=== PATIENT | female | born 1930 | race Caucasian/White ===

== ENCOUNTER 2016-06-01 00:26 | Emergency (ER) | payer OTHER ==
[~2016-06-01] VITALS: Ht 162.5 cm; Wt 61.2 kg
[~2016-06-01 00:26] MED LIST: ANTIVERT/2525 M1 PO; AUGMENTIN 875 M1 TAB PO; CIPRO500 MG PO; CIPROFLOXACIN500 M4 PO; CLARITIN10 MG PO; EXELON4.6 MG/24 T; LISINOPRIL5 MG PO; MEDROL DOSEPAK4 MG PO; PROVENTIL0.09 MG/AC IH; RISPERDAL0.5 MG PO; XANAX0.5 MG PO
[2016-06-01] MEDS ORDERED: EXELON4.6 MG/24 TD (00:45)
[2016-06-01] MEDS ORDERED: LISINOPRIL2.5 MG PO (00:45)
[2016-06-01] MEDS ORDERED: XANAX0.5 MG PO (00:46)
[2016-06-01] MEDS ORDERED: Meclizine25 MG PO (00:46)
[2016-06-01] MEDS ORDERED: AMBIEN10 M1 JT (00:47)
[2016-06-01] MEDS ORDERED: [UNRECOGNIZED DRUG - OTHER] T (00:48)
== END 2016-06-01 03:10 | disposition other institution (70) ==
LOC: ED 00:26
DX: S00.83XA Contusion of other part of head, initial encounter (principal); Z88.2 Allergy status to sulfonamides; Z88.1 Allergy status to other antibiotic agents; Z79.899 Other long term (current) drug therapy; W18.39XA Other fall on same level, initial encounter; Y93.9 Activity, unspecified; Y92.9 Unspecified place or not applicable; Y99.9 Unspecified external cause status

== ENCOUNTER 2016-10-25 18:49 | Inpatient (IN) | payer OTHER ==
[~2016-10-25] VITALS: Ht 162.5 cm; Wt 53.1 kg
--- NOTE | ~2016-10-25 | PR ---
[place], [place] PROGRESS NOTE NAME: CHICO SERRATO UNIT #: [id number] ROOM: 411 DOCTOR: NICOLLE ROMEO MD BIRTHDATE: [birth year] DOS: 10/27/2016 SUBJECTIVE: The patient is about the same, does not have any new complaints. OBJECTIVE: LUNGS: Clear. HEART: Regular. ABDOMEN: Soft. EXTREMITIES: Without any edema. ASSESSMENT AND PLAN: 1. Alzheimer's dementia, late onset with encephalopathy. 2. Urinary tract infection has been resolved. 3. Dehydration, which is corrected. The plan is to discharge her back to the senior care this morning. Discussed with the patient's son-in-law. NICOLLE ROMEO MD CM:PNTRANS [phone] NICOLLE ROMEO MD 10/27/16 2309 interface
--- NOTE | ~2016-10-25 | DS ---
[place], [place] DISCHARGE SUMMARY NAME: CHICO SERRATO UNIT #: [id number] ROOM: 411 DOCTOR: NICOLLE ROMEO MD BIRTHDATE: [birth year] DOS: HOSPITAL COURSE: This patient is 85 years old, was brought into the Emergency Room with complaints of episodes of nausea, abdominal pain, chest discomfort, and multiple episodes of emesis. When she arrived to the Emergency Room, she was found to be prerenal and she was admitted and placed on IV fluids, IV Zofran possibility of UTI was noted. Urinalysis was sent for culture urine. The patient was placed on antibiotics. The patient is remaining stable without any new problems. She does get quite confused at times and gets agitated and combative. This morning, UTI has been ruled out. She has already pulled out the IV fluids. The plan is therefore to discharge her back to the custodial. Because of the complaint of chest pain, rule out RI protocol was ordered, all enzymes were negative. White cell count was normal at 8.3. Urine culture preliminary shows no bacterial growth. ASSESSMENT AND PLAN: 1. Prerenal azotemia. 2. Nausea, vomiting, possibly viral gastroenteritis. Urinary tract infection was ruled out. 3. Alzheimer dementia, late onset. 4. 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 5. Benign hypertension. DISCHARGE MEDICATIONS: Will be Exelon 13.3 daily, Seroquel 50 at bedtime, Colace 100 at bedtime, lisinopril 2.5 daily, mirtazapine 15 at bedtime, Lasix 20 daily p.r.n. for leg swelling, Colace was also 100 mg at bedtime p.r.n. for constipation. NICOLLE ROMEO MD CM:DISCHARG [phone] NICOLLE ROMEO MD 10/27/16 0854 interface
--- NOTE | ~2016-10-25 | WRIGHTHP ---
[place], [place] PATIENT HISTORY AND PHYSICAL EXAM [id number] UNIT #: [id number] ROOM: 411 DOCTOR: NICOLLE ROMEO MD BIRTHDATE: [birth year] DOS: 10/26/2016 HISTORY OF PRESENT ILLNESS: This patient is 85 years old. The patient had multiple emesis at the snf yesterday and also complains of minimal chest discomfort and was brought to the Emergency Room. She was evaluated and was found to be dehydrated and possibly with a UTI, was admitted. This morning, the patient is resting comfortably, does not know why she is here, but pleasant, in no distress and not agitated. Denies having any chest pains, palpitations, or shortness of breath. PAST MEDICAL HISTORY: 1. Significant for last hospitalization in 2016 with encephalopathy from UTI. 2. Alzheimer dementia, late onset. 3. Adult failure to thrive. 4. Benign hypertension. 5. Frailty with falls. MEDICATIONS: Medications that she is on currently are: Home meds are Colace 100 mg daily p.r.n. for constipation, Lasix 20 daily, lisinopril 2.5 daily, mirtazapine 15 mg at bedtime, Seroquel 50 mg at bedtime, and Exelon 13.3 mg patch daily. SOCIAL HISTORY: Nonsmoker, does not use any alcohol. Her children are grown and lives in town. She lives at [facility]. PHYSICAL EXAMINATION: GENERAL: She is awake and alert, not oriented to time, place or person this morning. She did not recognize me. VITAL SIGNS: Blood pressure is 126/64, pulse of 76, respirations 20, temperature 98.5. LUNGS: Diminished breath sounds. No wheezes, rales or rhonchi heard. HEART: Regular. ABDOMEN: Obese, soft, nontender. EXTREMITIES: Without any edema. LABORATORY DATA: WBC count is 8.3, hemoglobin 11.1, hematocrit 33.7. Comprehensive glucose 124, BUN 32, creatinine 1.0. Electrolytes were within normal limits. ASSESSMENT AND PLAN: 1. The patient who presents with nausea, emesis, possibly from a urinary tract infection versus viral gastroenteritis. The patient definitely has evidence of prerenal azotemia. IV fluids were ordered along with IV Zofran. 2. Possible urinary tract infection with encephalopathy. She is more forgetful than her baseline. This could be from underlying urinary tract infection. Urine culture has been sent. IV Rocephin started. 3. Benign hypertension, controlled. The patient should go back to the snf once we have the identification of the culture. [place], [place] PATIENT HISTORY AND PHYSICAL EXAM NAME: CHICO SERRATO UNIT #: [id number] ROOM: 411 DOCTOR: NICOLLE ROMEO MD BIRTHDATE: [birth year] NICOLLE ROMEO MD CM:HISPHYS:PATIENT HISTORY AND PHYSICAL EXAMINATION [phone] NICOLLE ROMEO MD 10/26/16 0755 interface
[2016-10-25 18:49] VITALS: BP 132/70
[~2016-10-25 18:49] MED LIST changes: +AMBIEN10 M1 JT; +EXELON4.6 MG/24 TD; +LISINOPRIL2.5 MG PO; +Meclizine25 MG PO; +[UNRECOGNIZED DRUG - OTHER] T
[2016-10-25 19:00] VITALS: BP 136/72
[2016-10-25 19:29] LABS: BASO # 0.1 10*3/uL (0.0-0.1); BASO % 1.4 % (0.0-1.0); EOS % 0.4 % (1.0-4.0); HEMATOCRIT 33.7 % (37.0-47.0); HEMOGLOBIN 11.1 g/dl (12.0-16.0); LYMPH # 1.3 10*3/uL (1.3-4.4); LYMPH % 15.9 % (27.0-41.0); MEAN CELL VOLUME 92.3 fl (81.0-99.0); MEAN CORPUSCULAR HGB 30.4 pg (27.0-31.0); MEAN CORPUSCULAR HGB CONC 32.9 g/dl (33.0-37.0); MEAN PLATELET VOLUME 9.4 fl (9.6-12.3); MONO # 0.4 10*3/uL (0.1-1.0); MONO % 4.8 % (3.0-9.0); NEUT # 6.4 10*3/uL (2.3-7.9); NEUT % 77.3 % (47.0-73.0); PLATELET COUNT AUTOMATED 275 10*3/uL (130-400); RED BLOOD COUNT 3.65 10*6/uL (4.10-5.10); RED CELL DISTRI WIDTH 13.2 % (0-14.5); WHITE BLOOD COUNT 8.3 10*3/uL (4.8-10.8)
[2016-10-25 19:44] LABS: ALBUMIN 4.2 gm/dl (3.1-4.5); ALKALINE PHOSPHATASE 77 U/L (45-117); BILIRUBIN, TOTAL 0.4 mg/dl (0.2-1.0); BUN 32 mg/dl (7-24); CARBON DIOXIDE 28 mmol/L (21-32); CHLORIDE 105 mmol/L (98-107); EST GLOM FILT AFRICAN AMERICAN > 60 ml/min; GLUCOSE 124 mg/dL (65-99); POTASSIUM 4.6 mmol/L (3.5-5.1); SGOT/AST 13 IU/L (3-35); SGPT/ALT 12 U/L (12-78); SODIUM 139 mmol/L (136-145); TOTAL PROTEIN 7.6 gm/dL (6.4-8.2)
[2016-10-25 19:45] VITALS: BP 118/64
[2016-10-25 20:00] LABS: BILIRUBIN NEGATIVE (NEGATIVE); BLOOD NEGATIVE (NEGATIVE); CLARITY CLEAR (CLEAR); COLOR YELLOW (YELLOW); GLUCOSE NEGATIVE (NEGATIVE); KETONE 1+ (NEGATIVE); LEUKO ESTERASE NEGATIVE (NEGATIVE); NITRITE NEGATIVE (NEGATIVE); PH 5.5 (5.0-9.0); PROTEIN NEGATIVE (NEGATIVE); SPECIFIC GRAVITY 1.025 (1.005-1.030)
[2016-10-25 20:12] LABS: BACTERIA TRACE; MUCOUS 1+
[2016-10-25 20:13] LABS: EPITHELIAL CELLS 0-2
[2016-10-25 20:14] LABS: URINE REFLEX COMMENT YES (NO)
[2016-10-25 20:30] VITALS: BP 124/62
[2016-10-25 21:32] VITALS: BP 120/65
[2016-10-25] MEDS ORDERED: EXEL13.31 TD (21:48)
[2016-10-25] MEDS ORDERED: LASIX20 MG PO (21:49)
[2016-10-25] MEDS ORDERED: QUETIAPINE FUMA50 M1 PO (21:49)
[2016-10-25] MEDS ORDERED: DOK100 MG PO (21:50)
[2016-10-25] MEDS ORDERED: MIRTAZAPINE15 M1 PO (21:51)
[2016-10-25] MEDS ORDERED: LISINOPRIL5 MG PO (21:51)
[2016-10-25 22:30] VITALS: BP 142/64
[2016-10-26] VITALS: BP 130/63
[2016-10-26 04:00] VITALS: BP 126/64
[2016-10-26 08:00] VITALS: BP 115/50
[2016-10-26 12:00] VITALS: BP 117/90
[2016-10-26 16:00] VITALS: BP 112/50
[2016-10-26 20:00] VITALS: BP 123/67
[2016-10-27] VITALS: BP 115/49
[2016-10-27] MEDS ORDERED: LASIX20 MG PO (07:41)
[2016-10-27 08:00] VITALS: BP 123/56
[2016-10-27 12:00] VITALS: BP 107/68
== END 2016-10-27 13:01 | disposition other institution (70) | DRG 391 ==
LOC: ED 18:49 → 4E 21:01 → EDHOLD 21:01 → 4E 22:09
PROVIDERS: Emergency Medicine
DX: A08.4 Viral intestinal infection, unspecified (principal); G93.40 Encephalopathy, unspecified; G30.1 Alzheimer's disease with late onset; R54 Age-related physical debility; F02.80 Dementia in other diseases classified elsewhere, unspecified severity, without behavioral disturbance, psychotic disturbance, mood disturbance, and anxiety; R62.7 Adult failure to thrive; I10 Essential (primary) hypertension; E86.0 Dehydration; K59.00 Constipation, unspecified; R07.9 Chest pain, unspecified; Z91.81 History of falling; Z87.440 Personal history of urinary (tract) infections; Z79.899 Other long term (current) drug therapy

== ENCOUNTER 2016-10-29 19:37 | Inpatient (IN) | payer OTHER ==
[~2016-10-29] VITALS: Ht 167.6 cm; Wt 54.7 kg
--- NOTE | ~2016-10-29 | O ---
[place], [place] OPERATIVE NOTE NAME: CHICO SERRATO UNIT #: [id number] ROOM: 525 DOCTOR: VIRGINIA SINMELISSA BIRTHDATE: [birth year] DOS: HISTORY OF PRESENT ILLNESS: The patient is an 85-year-old who has presented with chief complaint of recurrent nausea, vomiting, undergoing investigation. I have been asked for assessment of the patient in this regard. As well, the patient has had abnormal CT scan of the abdomen with segments of colitis. Case has been presented to the daughter; however, she does not want to proceed with colonoscopic evaluation; therefore, we organized panendoscopy today in search of nausea, vomiting and etiology of contribution from upper GI tract. PROCEDURE: Today's procedure part of investigation is panendoscopy plus biopsy. PREMEDICATION: Versed and Diprivan. SCOPE: Olympus forward-viewing gastroscope Q10 video. REPORT: After putting the patient in the left lateral position and after application of lubricant to the scope, the scope was introduced. Thereafter, under direct visualization, I advanced through the length of esophagus without difficulty. Esophagus cervicothoracic distally carefully examined. Gastric pouch was entered. Gastritis was seen. Mild small hiatal hernia about 2-3 cm was noticed. Duodenal bulb, second and third part within normal limits. Antral biopsy was obtained. The patient was extubated, tolerated the procedure well. IMPRESSION: Small hiatal hernia, gastritis. DISCUSSION AND PLAN: This patient's LFTs are normal. She is status post cholecystectomy, hysterectomy, hip arthroplasty, cataract extraction bilateral, total hips. Medication list has been reviewed. Her records have been reviewed. There is no acute contribution from upper GI tract to her nausea, vomiting except for small hiatal hernia. There is no evidence of bowel obstruction. Therefore, we are going to be continuing with supportive management, soft diet and clinical reassessment. Possibility of viral gastroenteritis has been kept in mind as far as colon is concerned. Power of prosecuting attorney did not authorize investigation of colon. On the other hand, the patient with suspected urinary tract infection, Enterococcus faecalis and sepsis in that regard could have been some contributor. Thank you very much indeed. [place], [place] OPERATIVE NOTE NAME: CHICO SERRATO UNIT #: [id number] ROOM: 525 DOCTOR: VIRGINIA SIN,MELISSA BIRTHDATE: [birth year] MELISSA COLEMAN MD CM:OPRECORD:OPERATIVE NOTE 1400 09 MELISSA COLEMAN MD 10/30/16 2016 interface
--- NOTE | ~2016-10-29 | DS ---
[place], [place] DISCHARGE SUMMARY NAME: CHICO SERRATO UNIT #: [id number] ROOM: 525 DOCTOR: NICOLLE ROMEO MD BIRTHDATE: [birth year] DOS: 10/31/2016 DIAGNOSES: 1. Gastroenteritis, viral. 2. Acute gastritis on endoscopy, on proton pump inhibitors. 3. Urinary tract infection with 50,000 colonies of Enterococcus faecalis. 4. Colitis with possibility of underlying malignancy with thickening of the transverse colon segment. 5. Alzheimer dementia with failure to thrive. 6. Hypertension. HOSPITAL COURSE: This patient is very well known to us, comes in with complaints of nausea and emesis. The patient was just discharged after an episode of viral gastritis. At that time, the urine culture was reported as negative. The patient was discharged back to the skilled nursing. She did not have any emesis after she got to the hospital. She went back to the skilled nursing; next day, she had 3 emesis at the skilled nursing. The family wanted her sent back out. Again, she was evaluated in the ER and labs were all within normal limits. Urine culture incidentally did come back showing 50,000 colonies of Enterococcus faecalis. A CT of the abdomen shows minimal colitis and thickening of the transverse colon. The patient had a consultation with Dr. Redmond ordered. Endoscopy with colonoscopy was scheduled, but the patient's daughter did not want a colonoscopy; endoscopy was performed. It showed some minimal esophagitis and hiatal hernia. The patient has again had no nausea or emesis after admission to the hospital; the last time she had these symptoms was when she was in the skilled nursing. The patient is stable today and will be discharged back to the skilled nursing. The patient's code status is comfort care. Please keep her comfortable at the skilled nursing. DISCHARGE MEDICATIONS: Cipro 500 mg b.i.d. for 5 days, Flagyl 500 mg 3 times a day for 5 days, Exelon 13.3 mg daily, lisinopril 2.5 daily, Remeron 15 at bedtime, Seroquel 50 at bedtime, Vistaril 25 at bedtime, Lasix 20 daily p.r.n. for leg swelling, Colace 100 mg daily for constipation, meclizine 25 q. 8 p.r.n. for dizziness, Zofran 8 mg q. 8 p.r.n. for nausea, Prilosec 20 mg daily, Reglan 5 mg p.o. twice daily for 5 days. [place], [place] DISCHARGE SUMMARY NAME: CHICO SERRATO UNIT #: [id number] ROOM: 525 DOCTOR: NICOLLE ROMEO MD BIRTHDATE: [birth year] NICOLLE ROMEO MD CM:DISCHARG [phone] NICOLLE ROMEO MD 10/31/16 0813 interface
--- NOTE | ~2016-10-29 | PR ---
[place], [place] PROGRESS NOTE NAME: CHICO SERRATO UNIT #: [id number] ROOM: 525 DOCTOR: NICOLLE ROMEO MD BIRTHDATE: [birth year] DOS: 10/31/2016 SUBJECTIVE: The patient has no complaints. After being brought to the Emergency Room, she has not had any emesis at all. OBJECTIVE: VITAL SIGNS: Graphic trend shows a pressure of 115/70, pulse 69, respirations 18, temperature 99.2. LUNGS: Clear. HEART: Regular. ABDOMEN: Soft, scaphoid. EXTREMITIES: Without any edema, nontender. ASSESSMENT AND PLAN: 1. Nausea, emesis of unknown etiology, possibly from recent UTI. Enterococcus faecalis was noted. The patient is on appropriate antibiotics. 2. Colitis noticed on the CT scan. Discussed with the patient's daughter. She did not want a colonoscopy. It is always a possibility that it could be a malignancy. The thickening of the transverse colon was noted. The patient's daughter is aware of the CT findings and the possibility that she may have underlying CA. 3. Enterococcus faecalis, 50,000 colonies, on Cipro. The patient is stable and can go back to the halfway today. NICOLLE ROMEO MD CM:PNTRANS 0 44 NICOLLE ROMEO MD 10/31/161944 interface
--- NOTE | ~2016-10-29 | CON ---
[place], [place] REPORT OF CONSULTATION NAME: CHICO SERRATO UNIT #: [id number] ROOM: 525 DOCTOR: VIRGINIA SIN,MELISSA BIRTHDATE: [birth year] DOS: 10/30/2016 GASTROENDOSCOPIC CONSULTATION HISTORY OF PRESENT ILLNESS: An 85-year-old patient who has presented with chief complaint of sepsis, this is under treatment and the patient has had a CT scan of the abdomen done. A segment of the colon was with colitis. The patient as well has nausea, vomiting, persistent in correction. PAST MEDICAL HISTORY: Associated with hypertension, Alzheimer dementia. The patient has had a history of falling episodes. SOCIAL HISTORY: Nonsmoker. Nonalcohol consumer. FAMILY HISTORY: Noncontributory. MEDICATIONS: List has been reviewed. ALLERGIES: SULFA. REVIEW OF SYSTEMS: HEENT: Denies double vision, blurred vision. RESPIRATORY: Denies shortness of breath. CARDIOVASCULAR: Denies chest pain. DIGESTIVE SYSTEM: Good appetite, nausea, vomiting. PHYSICAL EXAMINATION: VITAL SIGNS: Stable. HEENT: Head normocephalic, nontraumatic. Mouth and buccal mucosa benign. NECK: Supple, no thyromegaly, no cervical lymphadenopathy. CHEST: Symmetric anatomy, equal expansion. No wheeze. No rhonchi. HEART: Normal sinus rhythm. No gallop, no murmur. ABDOMEN: Soft. No hepato-organomegaly. Bowel sounds present. No pulsatile mass. EXTREMITIES: No cyanosis, no pedal edema. NEUROLOGIC: Alert and slow orientation. LABORATORY DATA: Reviewed. Records reviewed. Case discussed with the daughter. Her lab results, electrolytes balanced, GFR greater than 60, white blood cell was 6, H and H of [address] scan of the abdomen and pelvis, wall thickening in the ascending and transverse colon, extensive diverticulosis of the colon. Comprehensive metabolic panel, amylase, lipase within normal limits. Blood cultures, no growth on October 27. Troponin has been normal. Urine culture shows greater than 50 Enterococcus faecalis. Lactic acid has been 0.8. IMPRESSION: 1. Recurrent nausea, vomiting. 2. Hypertension. 3. Alzheimer dementia. [place], [place] REPORT OF CONSULTATION NAME: CHICO SERRATO UNIT #: [id number] ROOM: 525 DOCTOR: VIRGINIA SIN,MELISSA BIRTHDATE: [birth year] PLAN AND DISCUSSION: We are going to organize an endoscopy of upper tract. I have discussed with the power of erisa attorney, daughter. She does not want to have a colonoscopy performed at this stage. Therefore, we are going want to only proceed with panendoscopic assessment in search of upper GI causes of nausea, vomiting. MELISSA COLEMAN MD CM:CONSTR:REPORT OF CONSULTATION 1323 10/31/16 0456 interface
--- NOTE | ~2016-10-29 | WRIGHTHP ---
[place], [place] PATIENT HISTORY AND PHYSICAL EXAM [id number] UNIT #: [id number] ROOM: 525 DOCTOR: NICOLLE ROMEO MD BIRTHDATE: [birth year] DOS: 10/30/2016 HISTORY OF PRESENT ILLNESS: This patient is 85 years old, very well known to us, I just discharged her from the hospital. She was admitted with prerenal azotemia. At that time, the urine culture was called as negative, so she went back to the group home. Yesterday morning, I saw her at the group home. She looked poorly with mostly in bed, did not want to eat anything. By late afternoon, she was having some nausea and had a couple of emesis. After about 3 emesis, the family requested the patient be sent to the Emergency Room. She arrived to the Emergency Room. She had a CT of the abdomen and blood work. CT showed some thickening of colonic segments and possible colitis. Labs were all within normal limits except for a hemoglobin of 9.5, which is chronic. She was not found to be dehydrated any longer. Lactic acid was normal. Urine culture now incidentally is coming back to showing Enterococcus faecalis. She was admitted and this morning after admission, she has not had any emesis at all. She denies having any chest pains, palpitations. PAST MEDICAL HISTORY: Significant for: 1. Again, recent hospitalization for prerenal azotemia and a UTI. 2. Alzheimer dementia, failure to thrive with frailty and falls. 3. Benign hypertension. PHYSICAL EXAMINATION: GENERAL: She is awake and alert, but not oriented to time, place. Did recognize me this morning. VITAL SIGNS: Graphic trend shows that she is afebrile. Pressure is 136/46, pulse is 62, respirations 18, temperature 98.2. LUNGS: Diminished breath sounds. No wheezes, rales or rhonchi heard. HEART: Regular. ABDOMEN: Obese, soft. EXTREMITIES: Without any edema. ASSESSMENT AND PLAN: 1. Nausea, emesis of unknown etiology. Again, CT shows colitis. The patient has been placed on IV antibiotics. Flagyl was given in the Emergency Room and will continue with here. I did inform Dr. Redmond. He probably will do a colonoscopy this morning because of thickening of the transverse colon that may indicate underlying malignancy. 2. Urinary tract infection with Enterococcus faecalis. Cipro has been started. 3. Dementia, Alzheimer's late onset. Stable without any new cognitive problems. [place], [place] PATIENT HISTORY AND PHYSICAL EXAM NAME: CHICO SERRATO UNIT #: [id number] ROOM: [facility] DOCTOR: NICOLLE ROMEO MD BIRTHDATE: [birth year] NICOLLE ROMEO MD CM:HISPHYS:PATIENT HISTORY AND PHYSICAL EXAMINATION 0730 1015 NICOLLE ROMEO MD 10/30/16 1015 interface
[~2016-10-29 19:37] MED LIST changes: +DOK100 MG PO; +EXEL13.31 TD; +LASIX20 MG PO; +MIRTAZAPINE15 M1 PO; +QUETIAPINE FUMA50 M1 PO
[2016-10-29 19:47] VITALS: BP 128/50
[2016-10-29] MEDS ORDERED: REGLAN5 MG PO (20:43)
[2016-10-29] MEDS ORDERED: ZOFRAN8 M1 PO (20:43)
[2016-10-29 20:44] LABS: BASO # 0.1 10*3/uL (0.0-0.1); BASO % 1.1 % (0.0-1.0); EOS % 0.5 % (1.0-4.0); HEMATOCRIT 30.9 % (37.0-47.0); HEMOGLOBIN 10.4 g/dl (12.0-16.0); LYMPH # 1.1 10*3/uL (1.3-4.4); LYMPH % 17.1 % (27.0-41.0); MEAN CELL VOLUME 92.2 fl (81.0-99.0); MEAN CORPUSCULAR HGB CONC 33.7 g/dl (33.0-37.0); MEAN PLATELET VOLUME 9.9 fl (9.6-12.3); MONO # 0.3 10*3/uL (0.1-1.0); MONO % 5.1 % (3.0-9.0); NEUT # 4.9 10*3/uL (2.3-7.9); NEUT % 75.9 % (47.0-73.0); PLATELET COUNT AUTOMATED 266 10*3/uL (130-400); RED BLOOD COUNT 3.35 10*6/uL (4.10-5.10); RED CELL DISTRI WIDTH 13.1 % (0-14.5); WHITE BLOOD COUNT 6.5 10*3/uL (4.8-10.8)
[2016-10-29] MEDS ORDERED: OMEPRAZOLE20 M2 PO (20:44)
[2016-10-29] MEDS ORDERED: VISTARIL25 M2 PO (20:45)
[2016-10-29] MEDS ORDERED: MECLIZINE HCL25 M2 PO (20:47)
[2016-10-29 20:59] VITALS: BP 130/54
[2016-10-29 21:01] LABS: ALBUMIN 3.7 gm/dl (3.1-4.5); ALKALINE PHOSPHATASE 64 U/L (45-117); BILIRUBIN, TOTAL 0.4 mg/dl (0.2-1.0); BUN 24 mg/dl (7-24); CARBON DIOXIDE 24 mmol/L (21-32); CHLORIDE 109 mmol/L (98-107); CKMB 0.8 ng/ml (0.5-3.6); CPK 48 U/L (26-192); EST GLOM FILT AFRICAN AMERICAN > 60 ml/min; GLUCOSE 107 mg/dL (65-99); LDH 155 U/L (84-246); MAGNESIUM 2.2 mg/dL (1.5-2.1); POTASSIUM 4.3 mmol/L (3.5-5.1); SGOT/AST 11 IU/L (3-35); SGPT/ALT 11 U/L (12-78); SODIUM 142 mmol/L (136-145); TOTAL PROTEIN 6.6 gm/dL (6.4-8.2); TROPONIN I < 0.015 ng/ml (<0.045)
[2016-10-30] VITALS (11 sets, daily range): BP systolic 93–136; BP diastolic 33–62
[2016-10-30 06:10] LABS: BASO # 0.1 10*3/uL (0.0-0.1); BASO % 1.3 % (0.0-1.0); EOS # 0.1 10*3/uL (0.0-0.4); EOS % 1.8 % (1.0-4.0); HEMATOCRIT 28.8 % (37.0-47.0); HEMOGLOBIN 9.5 g/dl (12.0-16.0); LYMPH # 1.9 10*3/uL (1.3-4.4); LYMPH % 30.1 % (27.0-41.0); MEAN CELL VOLUME 92.9 fl (81.0-99.0); MEAN CORPUSCULAR HGB 30.6 pg (27.0-31.0); MEAN PLATELET VOLUME 10.2 fl (9.6-12.3); MONO # 0.5 10*3/uL (0.1-1.0); MONO % 8.1 % (3.0-9.0); NEUT # 3.6 10*3/uL (2.3-7.9); NEUT % 58.4 % (47.0-73.0); PLATELET COUNT AUTOMATED 258 10*3/uL (130-400); RED CELL DISTRI WIDTH 13.2 % (0-14.5); WHITE BLOOD COUNT 6.2 10*3/uL (4.8-10.8)
[2016-10-30 06:48] LABS: BUN 18 mg/dl (7-24); CARBON DIOXIDE 26 mmol/L (21-32); CHLORIDE 110 mmol/L (98-107); EST GLOM FILT AFRICAN AMERICAN > 60 ml/min; GLUCOSE 80 mg/dL (65-99); POTASSIUM 3.8 mmol/L (3.5-5.1); SODIUM 142 mmol/L (136-145)
[2016-10-31] VITALS: BP 115/70
[2016-10-31] MEDS ORDERED: CIPROFLOXACIN500 M4 PO (06:44)
[2016-10-31] MEDS ORDERED: FLAGYL500 MG PO (06:44)
[2016-10-31 08:00] VITALS: BP 130/67
== END 2016-10-31 10:45 | disposition other institution (70) | DRG 392 ==
LOC: ED 19:37 → EDHOLD 10-30 00:17 → 5E 10-30 00:17
PROVIDERS: Internal Medicine; Physician Assistant
PROC: 0DB68ZX Excision of Stomach, Via Natural or Artificial Opening Endoscopic, Diagnostic (ICD-10-PCS; principal; 2016-10-30)
DX: A08.4 Viral intestinal infection, unspecified (principal); N39.0 Urinary tract infection, site not specified; G30.1 Alzheimer's disease with late onset; F02.80 Dementia in other diseases classified elsewhere, unspecified severity, without behavioral disturbance, psychotic disturbance, mood disturbance, and anxiety; I10 Essential (primary) hypertension; K29.00 Acute gastritis without bleeding; R62.7 Adult failure to thrive; K44.9 Diaphragmatic hernia without obstruction or gangrene; K20.9 Esophagitis, unspecified; B95.2 Enterococcus as the cause of diseases classified elsewhere; Z66 Do not resuscitate; Z96.649 Presence of unspecified artificial hip joint; Z90.49 Acquired absence of other specified parts of digestive tract; Z90.710 Acquired absence of both cervix and uterus; Z98.42 Cataract extraction status, left eye; Z88.2 Allergy status to sulfonamides; Z98.41 Cataract extraction status, right eye; Z80.9 Family history of malignant neoplasm, unspecified; Z91.81 History of falling

== ENCOUNTER 2017-01-02 10:32 | Emergency (ER) | payer OTHER ==
[~2017-01-02] VITALS: Wt 49.9 kg
[~2017-01-02 10:32] MED LIST changes: +FLAGYL500 MG PO; +MECLIZINE HCL25 M2 PO; +OMEPRAZOLE20 M2 PO; +REGLAN5 MG PO; +VISTARIL25 M2 PO; +ZOFRAN8 M1 PO
[2017-01-02 10:59] LABS: BASO # 0.1 10*3/uL (0.0-0.1); BASO % 1.1 % (0.0-1.0); EOS % 0.4 % (1.0-4.0); HEMATOCRIT 32.8 % (37.0-47.0); HEMOGLOBIN 10.7 g/dl (12.0-16.0); LYMPH # 1.4 10*3/uL (1.3-4.4); LYMPH % 16.3 % (27.0-41.0); MEAN CELL VOLUME 93.2 fl (81.0-99.0); MEAN CORPUSCULAR HGB 30.4 pg (27.0-31.0); MEAN CORPUSCULAR HGB CONC 32.6 g/dl (33.0-37.0); MEAN PLATELET VOLUME 9.6 fl (9.6-12.3); MONO # 0.5 10*3/uL (0.1-1.0); MONO % 5.9 % (3.0-9.0); NEUT # 6.3 10*3/uL (2.3-7.9); NEUT % 76.1 % (47.0-73.0); PLATELET COUNT AUTOMATED 279 10*3/uL (130-400); RED BLOOD COUNT 3.52 10*6/uL (4.10-5.10); RED CELL DISTRI WIDTH 13.1 % (0-14.5); WHITE BLOOD COUNT 8.3 10*3/uL (4.8-10.8)
[2017-01-02 11:16] LABS: ALBUMIN 3.7 gm/dl (3.1-4.5); ALKALINE PHOSPHATASE 65 U/L (45-117); BILIRUBIN, TOTAL 0.5 mg/dl (0.2-1.0); BUN 23 mg/dl (7-24); CARBON DIOXIDE 26 mmol/L (21-32); CHLORIDE 108 mmol/L (98-107); EST GLOM FILT AFRICAN AMERICAN > 60 ml/min; GLUCOSE 96 mg/dL (65-99); POTASSIUM 4.2 mmol/L (3.5-5.1); SGOT/AST 12 IU/L (3-35); SGPT/ALT 13 U/L (12-78); SODIUM 139 mmol/L (136-145); TOTAL PROTEIN 6.9 gm/dL (6.4-8.2)
[2017-01-02 11:17] LABS: PROTHROMBIN TIME 10.5 SECONDS (9.0-12.4)
[2017-01-02 11:37] LABS: MAGNESIUM 2.1 mg/dL (1.5-2.1)
[2017-01-02 11:38] LABS: C-REACTIVE PROTEIN < 0.29 MG/DL (0-0.3); TROPONIN I < 0.015 ng/ml (<0.045)
[2017-01-02 12:51] LABS: BILIRUBIN NEGATIVE (NEGATIVE); BLOOD NEGATIVE (NEGATIVE); CLARITY SL CLOUDY (CLEAR); COLOR YELLOW (YELLOW); GLUCOSE NEGATIVE (NEGATIVE); KETONE 1+ (NEGATIVE); LEUKO ESTERASE NEGATIVE (NEGATIVE); NITRITE NEGATIVE (NEGATIVE); PH 5.5 (5.0-9.0); PROTEIN NEGATIVE (NEGATIVE); SPECIFIC GRAVITY >= 1.030 (1.005-1.030); UROBILINOGEN 0.2 E.U./dl (0.2-1.0)
[2017-01-02 13:31] LABS: BACTERIA TRACE; EPITHELIAL CELLS 0-2; MUCOUS 1+; URINE REFLEX COMMENT NO (NO)
== END 2017-01-02 16:21 ==
LOC: ED 10:32
PROVIDERS: Emergency Medicine; Nurse Practitioner Family
DX: R11.2 Nausea with vomiting, unspecified (principal); Z79.899 Other long term (current) drug therapy; Z88.2 Allergy status to sulfonamides; Z88.1 Allergy status to other antibiotic agents

== ENCOUNTER 2017-01-09 11:19 | Inpatient (IN) | payer OTHER ==
[~2017-01-09] VITALS: Ht 167.6 cm; Wt 49.9 kg
--- NOTE | ~2017-01-09 | O ---
[place], [place] OPERATIVE NOTE NAME: CHICO SERRATO UNIT #: [id number] ROOM: 427 DOCTOR: MELISSA COLEMAN MD BIRTHDATE: [birth year] DOS: GASTROENTEROSCOPIC REPORT INDICATIONS: The patient is an 86-year-old who has presented with chief complaint of diarrhea, abdominal pain, cramp, anemia, undergoing investigation. PROCEDURE: Today's procedure part of investigation is colonoscopy. PREMEDICATION: Versed and Diprivan. SCOPE: Olympus forward-viewing colonoscope 10L video. REPORT: After putting the patient in the left lateral position and after application of lubricant to rectal pouch and digital examination, scope was introduced. Thereafter, under direct visualization, I advanced through the length of colon without difficulty. Difficulty only being severe sigmoid diverticulosis. Base of cecum explored, patient had no evidence of colitis identified. The patient extubated, tolerated procedure well. IMPRESSION: Severe diverticulosis of sigmoid colon, status post photographic series. PLAN AND DISCUSSION: We are going to resume soft to regular diet and supportive management, otherwise. Thank you very much indeed for your kind referral. Sincerely, MELISSA COLEMAN MD CM:OPRECORD:OPERATIVE NOTE [id number] NICOLLE COLEMAN MD 01/10/17 1337 interface
--- NOTE | ~2017-01-09 | PR ---
[place], [place] PROGRESS NOTE NAME: CHICO SERRATO UNIT #: [id number] ROOM: 422 DOCTOR: NICOLLE ROMEO MD BIRTHDATE: [birth year] DOS: 01/11/2017 SUBJECTIVE: The patient is doing fine without any complaints. Did have some confusion during the night. This morning, she is awake and alert and oriented, recognizes me. She has already ordered her breakfast. OBJECTIVE: VITAL SIGNS: Blood pressure is 134/53, pulse of 53, respirations 20, temperature 99.6. LUNGS: Clear. HEART: Regular. ABDOMEN: Soft. EXTREMITIES: Without any edema. LABORATORY DATA: Urine culture shows E. coli. ASSESSMENT AND PLAN: 1. The patient admitted with nausea, vomiting and diarrhea with colitis on the CT scan of the abdomen, but negative colonoscopy, mostly showed diverticulosis. 2. Urinary tract infection with Escherichia coli. The patient was started on antibiotics. IV will discontinue and make p.o. and discharge her back to the halfway. 3. Alzheimer's dementia with metabolic encephalopathy, possibly from a recent urinary tract infection. We will continue same medications at the halfway. NICOLLE ROMEO MD CM:PNTRANS [id number] NICOLLE ROMEO MD 01/12/17 0643 interface
--- NOTE | ~2017-01-09 | WRIGHTHP ---
[place], [place] PATIENT HISTORY AND PHYSICAL EXAM NAME: CHICO SERRATO [facility] #: [id number] UNIT #: [id number] ROOM: 427 DOCTOR: NICOLLE ROMEO MD BIRTHDATE: [birth year] DOS: 01/09/2017 HISTORY OF PRESENT ILLNESS: This patient is 86 years old. The patient comes in with complaints of nausea, vomiting and diarrhea. The patient has had multiple ER visits. The last one was in 01/02/2017 where she was evaluated and was sent back to the [facility]. This time, the patient's family wanted the patient readmitted for a possible colonoscopy. The patient does not have any complaints of chest pains or palpitations. She states that she feels fine, but she has dementia and does not remember previous day's events. PAST MEDICAL HISTORY: Significant for, 1. Alzheimer dementia, late onset with failure to thrive. 2. Benign hypertension. 3. History of colitis of both ascending and transverse colon in the past. 4. Multiple UTIs. 5. History of endoscopy showing gastritis. MEDICATIONS: She is on are hydroxyzine 25 at bedtime, lisinopril 2.5, mirtazapine 15 at bedtime, omeprazole 20 daily, quetiapine 50 at bedtime, rivastigmine 13 mg transdermal daily. SOCIAL HISTORY: Nonsmoker, does not use any alcohol. She is a resident of [facility]. PHYSICAL EXAMINATION: GENERAL: She is awake and alert, but oriented to person, but not to place or time. VITAL SIGNS: Graphic trend shows pressure 118/55, pulse of 71, respirations 20, temperature 98.0. LUNGS: Diminished breath sounds. HEART: Regular. ABDOMEN: Soft, scaphoid, nontender. EXTREMITIES: Without any edema. LABORATORY DATA: White cell count is normal at 8.2, hemoglobin 10.6, hematocrit 32.8. Lactic acid 1. Comprehensive within normal limits, no abnormalities noted. Urinalysis shows 3+ blood, positive nitrite, positive leukocyte esterase. Culture pending. CT of the abdomen and pelvis shows thickening of the ascending colon with fat stranding. ASSESSMENT AND PLAN: 1. The patient who has had chronic diarrhea with colitis. Dr. Redmond to take her for a colonoscopy this morning. 2. History of gastritis already on proton pump inhibitors, being continued. 3. Benign hypertension, controlled. Restart home meds. 4. Alzheimer dementia, late onset. Continue supportive symptomatic care. [place], [place] PATIENT HISTORY AND PHYSICAL EXAM NAME: CHICO SERRATO UNIT #: [id number] ROOM: [facility] DOCTOR: NICOLLE ROMEO MD BIRTHDATE: [birth year] NICOLLE ROMEO MD CM:HISPHYS:PATIENT HISTORY AND PHYSICAL EXAMINATION [phone] NICOLLE ROMEO MD 01/10/17 0812 interface
--- NOTE | ~2017-01-09 | DS ---
[place], [place] DISCHARGE SUMMARY NAME: CHICO SERRATO UNIT #: [id number] ROOM: 422 DOCTOR: NICOLLE ROMEO MD BIRTHDATE: [birth year] DOS: 01/11/2017 DIAGNOSES: 1. Urinary tract infection with Escherichia coli. 2. Metabolic encephalopathy from the urinary tract infection. 3. Alzheimer dementia, late onset. 4. Adult failure to thrive. 5. Benign hypertension. 6. Colitis of the ascending and transverse colon, but a colonoscopy showing no findings other than diverticulosis. 7. History of acute gastritis with endoscopy earlier this year. MEDICATIONS ON DISCHARGE: Will be Ceftin 250 twice daily for 5 days, Exelon 13.3 mg patch daily, Seroquel 50 mg at bedtime, Colace 100 mg daily, lisinopril 2.5 mg daily, mirtazapine 15 at bedtime, ondansetron 8 mg q.8 hours p.r.n., omeprazole 20 daily, Vistaril 25 at bedtime. HOSPITAL COURSE: This patient is 86 years old, was brought in with complaints of nausea, vomiting and diarrhea. Please see the H and P for details. She had a CT scan of the abdomen showed colitis of the ascending and transverse colon with thickening of the colonic wall. The patient underwent a colonoscopy after prep with Dr. Redmond. This showed diverticulosis. No other pathology was seen. The patient also had a urinalysis in reflex, which showed urine E. coli for which the patient was placed on Levaquin, but the E. coli is resistant to Levaquin, so we will discontinue it and place her on Ceftin. The patient is stable. She did have some periods of confusion, possibly from being in hospital and also, possibly from UTI. The patient is stable and can be discharged back to the custodial. NICOLLE ROMEO MD CM:DISCHARG [phone] NICOLLE ROMEO MD 01/11/1728 interface
[~2017-01-09 11:19] MED LIST changes: -MIRTAZAPINE15 M1 PO; +OMEPRAZOLE D/R20 MG PO; -OMEPRAZOLE20 M2 PO; +REMERON15 M2 PO; +ZESTRIL2.5 MG PO
[2017-01-09 11:20] VITALS: BP 117/50
[2017-01-09 12:46] LABS: BASO # 0.1 10*3/uL (0.0-0.1); BASO % 1.1 % (0.0-1.0); EOS # 0.1 10*3/uL (0.0-0.4); EOS % 1.2 % (1.0-4.0); HEMATOCRIT 32.8 % (37.0-47.0); HEMOGLOBIN 10.6 g/dl (12.0-16.0); LYMPH # 2.2 10*3/uL (1.3-4.4); LYMPH % 26.6 % (27.0-41.0); MEAN CORPUSCULAR HGB 30.4 pg (27.0-31.0); MEAN CORPUSCULAR HGB CONC 32.3 g/dl (33.0-37.0); MONO # 0.7 10*3/uL (0.1-1.0); MONO % 8.3 % (3.0-9.0); NEUT # 5.1 10*3/uL (2.3-7.9); NEUT % 62.6 % (47.0-73.0); PLATELET COUNT AUTOMATED 239 10*3/uL (130-400); RED BLOOD COUNT 3.49 10*6/uL (4.10-5.10); RED CELL DISTRI WIDTH 13.3 % (0-14.5); WHITE BLOOD COUNT 8.2 10*3/uL (4.8-10.8)
[2017-01-09 13:04] LABS: ALBUMIN 3.7 gm/dl (3.1-4.5); ALKALINE PHOSPHATASE 61 U/L (45-117); BILIRUBIN, TOTAL 0.5 mg/dl (0.2-1.0); BUN 15 mg/dl (7-24); CARBON DIOXIDE 27 mmol/L (21-32); CHLORIDE 106 mmol/L (98-107); EST GLOM FILT AFRICAN AMERICAN > 60 ml/min; GLUCOSE 83 mg/dL (65-99); SGOT/AST 8 IU/L (3-35); SGPT/ALT 10 U/L (12-78); SODIUM 141 mmol/L (136-145); TOTAL PROTEIN 6.6 gm/dL (6.4-8.2)
[2017-01-09 14:04] LABS: BILIRUBIN NEGATIVE (NEGATIVE); BLOOD 3+ (NEGATIVE); CLARITY SL CLOUDY (CLEAR); COLOR YELLOW (YELLOW); GLUCOSE NEGATIVE (NEGATIVE); KETONE NEGATIVE (NEGATIVE); LEUKO ESTERASE 2+ (NEGATIVE); NITRITE POSITIVE (NEGATIVE); PH 5.5 (5.0-9.0); PROTEIN TRACE (NEGATIVE); SPECIFIC GRAVITY >= 1.030 (1.005-1.030); UROBILINOGEN 0.2 E.U./dl (0.2-1.0)
[2017-01-09 14:11] LABS: BACTERIA 3+; RBC TNTC rbc/hpf (0-2); WBC TNTC wbc/hpf (0-5)
[2017-01-09 14:12] LABS: URINE REFLEX COMMENT YES (NO)
[2017-01-09 16:00] VITALS: BP 118/54
[2017-01-09 20:00] VITALS: BP 121/72; BP 125/55
[2017-01-09 20:30] VITALS: BP 121/72
[2017-01-10] VITALS (9 sets, daily range): BP systolic 101–134; BP diastolic 30–55
[2017-01-11] MEDS ORDERED: CEFUROXIME AXE250 MG PO (07:36)
[2017-01-11 08:00] VITALS: BP 126/57
== END 2017-01-11 09:10 | DRG 391 ==
LOC: ED 11:19 → 4E 13:37 → EDHOLD 13:37 → 4E 13:53
PROVIDERS: Nurse Practitioner Family
PROC: 0DJD8ZZ Inspection of Lower Intestinal Tract, Via Natural or Artificial Opening Endoscopic (ICD-10-PCS; principal; 2017-01-10)
DX: K57.30 Diverticulosis of large intestine without perforation or abscess without bleeding (principal); G93.41 Metabolic encephalopathy; N39.0 Urinary tract infection, site not specified; G30.1 Alzheimer's disease with late onset; F02.80 Dementia in other diseases classified elsewhere, unspecified severity, without behavioral disturbance, psychotic disturbance, mood disturbance, and anxiety; Z51.5 Encounter for palliative care; Z66 Do not resuscitate; B96.20 Unspecified Escherichia coli [E. coli] as the cause of diseases classified elsewhere; Z96.643 Presence of artificial hip joint, bilateral; R62.7 Adult failure to thrive; I10 Essential (primary) hypertension; K29.00 Acute gastritis without bleeding; Z88.2 Allergy status to sulfonamides; Z88.8 Allergy status to other drugs, medicaments and biological substances; Z79.899 Other long term (current) drug therapy; Z98.42 Cataract extraction status, left eye; K52.9 Noninfective gastroenteritis and colitis, unspecified

== ENCOUNTER 2017-01-31 19:17 | Emergency (ER) | payer OTHER ==
[~2017-01-31] VITALS: Ht 167.6 cm; Wt 47.6 kg
[~2017-01-31 19:17] MED LIST changes: +CEFUROXIME AXE250 MG PO
[2017-01-31 20:20] LABS: BASO # 0.1 10*3/uL (0.0-0.1); BASO % 1.3 % (0.0-1.0); EOS # 0.1 10*3/uL (0.0-0.4); EOS % 1.6 % (1.0-4.0); HEMOGLOBIN 11.6 g/dl (12.0-16.0); LYMPH # 2.1 10*3/uL (1.3-4.4); LYMPH % 37.7 % (27.0-41.0); MEAN CELL VOLUME 93.8 fl (81.0-99.0); MEAN CORPUSCULAR HGB 30.2 pg (27.0-31.0); MEAN CORPUSCULAR HGB CONC 32.2 g/dl (33.0-37.0); MEAN PLATELET VOLUME 9.4 fl (9.6-12.3); MONO # 0.4 10*3/uL (0.1-1.0); MONO % 7.1 % (3.0-9.0); NEUT # 2.9 10*3/uL (2.3-7.9); NEUT % 51.9 % (47.0-73.0); PLATELET COUNT AUTOMATED 306 10*3/uL (130-400); RED BLOOD COUNT 3.84 10*6/uL (4.10-5.10); RED CELL DISTRI WIDTH 13.1 % (0-14.5); WHITE BLOOD COUNT 5.5 10*3/uL (4.8-10.8)
[2017-01-31 20:37] LABS: BUN 20 mg/dl (7-24); CHLORIDE 101 mmol/L (98-107); CREATININE 1.04 mg/dL (0.55-1.02); POTASSIUM 4.3 mmol/L (3.5-5.1); SODIUM 137 mmol/L (136-145)
== END 2017-01-31 23:39 | disposition other institution (70) ==
LOC: ED 19:17
PROVIDERS: Physician Assistant
DX: M25.552 Pain in left hip (principal); Z88.2 Allergy status to sulfonamides; Z88.1 Allergy status to other antibiotic agents; Z79.899 Other long term (current) drug therapy; W18.39XA Other fall on same level, initial encounter; Y93.89 Activity, other specified; Y92.129 Unspecified place in nursing home as the place of occurrence of the external cause; Y99.8 Other external cause status

== ENCOUNTER 2017-02-03 15:20 | Emergency (ER) | payer OTHER ==
[~2017-02-03] VITALS: Wt 59.0 kg
[2017-02-03 16:50] LABS: BASO # 0.1 10*3/uL (0.0-0.1); BASO % 0.7 % (0.0-1.0); EOS # 0.1 10*3/uL (0.0-0.4); EOS % 0.7 % (1.0-4.0); HEMATOCRIT 36.7 % (37.0-47.0); HEMOGLOBIN 12.2 g/dl (12.0-16.0); LYMPH # 1.4 10*3/uL (1.3-4.4); LYMPH % 8.6 % (27.0-41.0); MEAN CELL VOLUME 94.3 fl (81.0-99.0); MEAN CORPUSCULAR HGB 31.4 pg (27.0-31.0); MEAN CORPUSCULAR HGB CONC 33.2 g/dl (33.0-37.0); MEAN PLATELET VOLUME 9.5 fl (9.6-12.3); MONO # 0.9 10*3/uL (0.1-1.0); MONO % 5.2 % (3.0-9.0); NEUT # 13.8 10*3/uL (2.3-7.9); NEUT % 84.4 % (47.0-73.0); PLATELET COUNT AUTOMATED 342 10*3/uL (130-400); RED BLOOD COUNT 3.89 10*6/uL (4.10-5.10); RED CELL DISTRI WIDTH 13.1 % (0-14.5); WHITE BLOOD COUNT 16.4 10*3/uL (4.8-10.8)
[2017-02-03 16:58] LABS: ACT PARTIAL THROMBO TIME 24.7 SECONDS (20.8-31.5)
[2017-02-03 17:06] LABS: ALBUMIN 4.1 gm/dl (3.1-4.5); ALKALINE PHOSPHATASE 84 U/L (45-117); BUN 16 mg/dl (7-24); CHLORIDE 105 mmol/L (98-107); CREATININE 0.94 mg/dL (0.55-1.02); MAGNESIUM 2.2 mg/dL (1.5-2.1); SGOT/AST 13 IU/L (3-35); SGPT/ALT 15 U/L (12-78); SODIUM 140 mmol/L (136-145); TOTAL PROTEIN 7.9 gm/dL (6.4-8.2)
[2017-02-03 17:07] LABS: TROPONIN I < 0.015 ng/ml (<0.045)
== END 2017-02-03 18:16 | disposition other institution (70) ==
LOC: ED 15:20
PROVIDERS: Emergency Medicine
DX: R55 Syncope and collapse (principal); D72.829 Elevated white blood cell count, unspecified; Z98.42 Cataract extraction status, left eye; Z96.643 Presence of artificial hip joint, bilateral; Z90.710 Acquired absence of both cervix and uterus; Z98.890 Other specified postprocedural states; Z88.2 Allergy status to sulfonamides; Z88.1 Allergy status to other antibiotic agents; Z88.8 Allergy status to other drugs, medicaments and biological substances; Z79.899 Other long term (current) drug therapy

== ENCOUNTER 2017-09-20 17:06 | Inpatient (IN) | payer OTHER, MEDICAID ==
[~2017-09-20] VITALS: Ht 165.1 cm; Wt 58.7 kg
--- NOTE | ~2017-09-20 | PR ---
[place], [place] PROGRESS NOTE NAME: CHICO SERRATO UNIT #: [id number] ROOM: 410 DOCTOR: NICOLLE ROMEO MD BIRTHDATE: [birth year] DOS: SUBJECTIVE: The patient is resting comfortably, pleasantly confused. OBJECTIVE: VITAL SIGNS: Blood pressure is 100/62, pulse of 68, respirations 16, temperature 98.8. LUNGS: Clear. HEART: Regular. ABDOMEN: Soft. EXTREMITIES: Without any edema. ASSESSMENT AND PLAN: 1. Urinary tract infection with gram-negative bacilli. I do not have any identification or sensitivities yet. 2. Acute kidney injury from infectious process, which has resolved with IV fluids. We will discontinue fluids. Continue antibiotics and the patient hopefully can be discharged back to the detention today. NICOLLE ROMEO MD CM:PNTRANS [phone] NICOLLE ROMEO MD 09/22/17 0800 interface
--- NOTE | ~2017-09-20 | WRIGHTHP ---
[place], [place] PATIENT HISTORY AND PHYSICAL EXAM NAME: CHICO SERRATO UNIT #: [id number] ROOM: 410 DOCTOR: NICOLLE ROMEO MD BIRTHDATE: [birth year] DOS: 09/20/2017 HISTORY OF PRESENT ILLNESS: The patient is 86-year-old. She is a resident of [facility], was found to be quite confused with a fever. The patient was therefore sent out to the Emergency Room. This morning, the patient is resting comfortably, does not have any complaints. looking forward for her breakfast. Denies having any abdominal pain or nausea. PAST MEDICAL HISTORY: Significant for: 1. Alzheimer's dementia, late onset. 2. Metabolic encephalopathy from history of UTI. 3. Adult failure to thrive. 4. Benign hypertension. 5. History of gastritis. MEDICATIONS: That the patient is currently on are: Tylenol 650 q. 4 hours p.r.n., cyproheptadine 4 mg twice a daily, Vistaril 50 at bedtime, metoclopramide 5 b.i.d., Remeron 15 at bedtime, omeprazole 20 daily, rivastigmine 13.3 mg patch daily. SOCIAL HISTORY: Nonsmoker, does not use any alcohol. She is a resident of [facility]. PHYSICAL EXAMINATION: GENERAL: She is awake and alert and oriented to place, but not to person or time. She did recognize me. VITAL SIGNS: Graphic trend shows blood pressure of 142/70, pulse of 76, respirations 14, afebrile this morning. LUNGS: Diminished breath sounds, clear. HEENT: Within normal limits. HEART: Regular. ABDOMEN: Obese, soft, nontender. EXTREMITIES: Without any edema. ASSESSMENT AND PLAN: 1. Metabolic encephalopathy with fever, possibly from urinary tract infection. The patient has been admitted. IV fluids have been ordered and urine cultures have been sent. IV antibiotics have been started. 2. Alzheimer's dementia with failure to thrive. Continue home medications. Hopefully, home as soon as we have the urine culture results. [place], [place] PATIENT HISTORY AND PHYSICAL EXAM NAME: CHICO SERRATO UNIT #: [id number] ROOM: 410 DOCTOR: NICOLLE ROMEO MD BIRTHDATE: [birth year] NICOLLE ROMEO MD CM:PHYS:PATIENT HISTORY AND PHYSICAL EXAMINATION 1 NICOLLE ROMEO MD 09/21/17 0852 interface
--- NOTE | ~2017-09-20 | DS ---
[place], [place] DISCHARGE SUMMARY NAME: CHICO SERRATO UNIT #: [id number] ROOM: 410 DOCTOR: NICOLLE ROMEO MD BIRTHDATE: [birth year] DOS: 09/22/2017 DIAGNOSES: 1. Urinary tract infection. 2. Metabolic encephalopathy. 3. Acute kidney injury, possibly from acute tubular necrosis from infectious process. 4. Alzheimer's dementia, late onset. 5. Benign hypertension. MEDICATIONS ON DISCHARGE: Will be the same as on admission. The only new prescription given was Ceftin 250 twice a day for 5 days. HOSPITAL COURSE: This patient is very well known to us. She is an 86-year-old. She lives at [facility]. She was found to be increasingly confused on the day of admission and also had a fall at home and hit her head. The patient was brought to the Emergency Room, was evaluated and was admitted with diagnosis of metabolic encephalopathy. After admission, she was given IV fluids for acute kidney injury and IV antibiotics. Urine culture was refluxed and it has come back growing gram-negative bacilli, did not have identification, no sensitivities yet. The patient is stable and improved. The acute kidney injury has corrected. The patient can be discharged home on p.o. antibiotics and we should be able to readjust medicines if the antibiotic sensitivity comes back and it is not the correct antibiotic. The patient is otherwise stable. NICOLLE ROMEO MD CM:DISCHARG [id number] NICOLLE ROMEO MD 09/22/17 0748 interface
[2017-09-20 17:09] VITALS: BP 136/66
[2017-09-20 18:49] LABS: BILIRUBIN NEGATIVE (NEGATIVE); BLOOD TRACE-INTACT (NEGATIVE); CLARITY SL CLOUDY (CLEAR); COLOR YELLOW (YELLOW); GLUCOSE NEGATIVE (NEGATIVE); KETONE NEGATIVE (NEGATIVE); LEUKO ESTERASE 1+ (NEGATIVE); NITRITE NEGATIVE (NEGATIVE); PH 6.5 (5.0-9.0); SPECIFIC GRAVITY 1.015 (1.005-1.030); UROBILINOGEN 0.2 E.U./dl (0.2-1.0)
[2017-09-20 18:54] LABS: BASO # 0.1 10*3/uL (0.0-0.1); BASO % 1.2 % (0.0-1.0); EOS # 0.2 10*3/uL (0.0-0.4); EOS % 2.6 % (1.0-4.0); HEMATOCRIT 35.2 % (37.0-47.0); HEMOGLOBIN 11.5 g/dl (12.0-16.0); LYMPH # 2.3 10*3/uL (1.3-4.4); LYMPH % 27.5 % (27.0-41.0); MEAN CELL VOLUME 90.7 fl (81.0-99.0); MEAN CORPUSCULAR HGB 29.6 pg (27.0-31.0); MEAN CORPUSCULAR HGB CONC 32.7 g/dl (33.0-37.0); MEAN PLATELET VOLUME 9.5 fl (9.6-12.3); MONO # 0.8 10*3/uL (0.1-1.0); MONO % 9.1 % (3.0-9.0); NEUT # 4.9 10*3/uL (2.3-7.9); NEUT % 59.2 % (47.0-73.0); PLATELET COUNT AUTOMATED 311 10*3/uL (130-400); RED BLOOD COUNT 3.88 10*6/uL (4.10-5.10); RED CELL DISTRI WIDTH 15.2 % (0-14.5); WHITE BLOOD COUNT 8.4 10*3/uL (4.8-10.8)
[2017-09-20 18:57] LABS: BACTERIA 1+
[2017-09-20 18:58] LABS: EPITHELIAL CELLS 51-100
[2017-09-20 18:59] LABS: WBC 51-100 wbc/hpf (0-5)
[2017-09-20 19:00] VITALS: BP 144/63
[2017-09-20 19:09] LABS: ALBUMIN 3.8 gm/dl (3.1-4.5); CREATININE 1.13 mg/dL (0.55-1.02); POTASSIUM 4.1 mmol/L (3.5-5.1); TOTAL PROTEIN 7.2 gm/dL (6.4-8.2)
[2017-09-20 19:36] VITALS: BP 130/55
[2017-09-20 21:34] VITALS: BP 135/60
[2017-09-20] MEDS ORDERED: TYLENOL325 M2 PO (23:54)
[2017-09-20] MEDS ORDERED: CYPROHEPTADINE H4 M1 PO (23:55)
[2017-09-20] MEDS ORDERED: REGLAN5 MG PO (23:55)
[2017-09-20] MEDS ORDERED: GLYCOLAX119 GM PO (23:59)
[2017-09-21] VITALS: BP 130/52
[2017-09-21 06:28] LABS: HEMATOCRIT 34.9 % (37.0-47.0); HEMOGLOBIN 11.4 g/dl (12.0-16.0); MEAN CELL VOLUME 91.4 fl (81.0-99.0); MEAN CORPUSCULAR HGB 29.8 pg (27.0-31.0); MEAN CORPUSCULAR HGB CONC 32.7 g/dl (33.0-37.0); MEAN PLATELET VOLUME 10.8 fl (9.6-12.3); PLATELET COUNT AUTOMATED 223 10*3/uL (130-400); RED BLOOD COUNT 3.82 10*6/uL (4.10-5.10); RED CELL DISTRI WIDTH 15.2 % (0-14.5)
[2017-09-21 06:38] LABS: BUN 20 mg/dl (7-24); CHLORIDE 114 mmol/L (98-107); CREATININE 0.81 mg/dL (0.55-1.02); POTASSIUM 4.6 mmol/L (3.5-5.1); SODIUM 143 mmol/L (136-145)
[2017-09-21 07:16] LABS: BURR CELLS FEW; PLATELET SUFFICIENCY NORMAL (NORMAL); TOTAL CELLS COUNTED 100 #CELLS
[2017-09-21 08:00] VITALS: BP 111/50
[2017-09-21 12:00] VITALS: BP 130/62
[2017-09-21 16:00] VITALS: BP 133/63
[2017-09-21 20:00] VITALS: BP 125/65
[2017-09-22] VITALS: BP 100/62; BP 97/83
[2017-09-22] MEDS ORDERED: CEFUROXIME AXE250 MG PO (07:36)
[2017-09-22 08:00] VITALS: BP 141/58
== END 2017-09-22 16:03 | DRG 682 ==
LOC: ED 17:06 → EDHOLD 20:38 → 4E 20:38
PROVIDERS: Emergency Medicine; Internal Medicine
DX: N17.0 Acute kidney failure with tubular necrosis (principal); G93.41 Metabolic encephalopathy; N39.0 Urinary tract infection, site not specified; G30.1 Alzheimer's disease with late onset; F02.80 Dementia in other diseases classified elsewhere, unspecified severity, without behavioral disturbance, psychotic disturbance, mood disturbance, and anxiety; R62.7 Adult failure to thrive; W19.XXXA Unspecified fall, initial encounter; Z96.643 Presence of artificial hip joint, bilateral; Z66 Do not resuscitate; Z51.5 Encounter for palliative care; B96.89 Other specified bacterial agents as the cause of diseases classified elsewhere; I10 Essential (primary) hypertension; Z79.899 Other long term (current) drug therapy; Z88.2 Allergy status to sulfonamides; Z88.8 Allergy status to other drugs, medicaments and biological substances; Y93.89 Activity, other specified; Y92.098 Other place in other non-institutional residence as the place of occurrence of the external cause; Y99.8 Other external cause status; Z87.19 Personal history of other diseases of the digestive system; Z87.01 Personal history of pneumonia (recurrent); Z90.710 Acquired absence of both cervix and uterus; Z98.42 Cataract extraction status, left eye; Z80.9 Family history of malignant neoplasm, unspecified

== ENCOUNTER → 2018-03-04 | Outpatient (CLI) | payer OTHER, MEDICAID ==
[~2018-03-04] MED LIST changes: +COLACE100 MG PO; +CYPROHEPTADINE H4 M1 PO; +DEBROX15 ML OT; +GLYCOLAX119 GM PO; +TYLENOL325 M2 PO
== END | disposition home or self-care (01) ==
LOC: ORTHO 02:16
DX: S42.294D Other nondisplaced fracture of upper end of right humerus, subsequent encounter for fracture with routine healing (principal); X58.XXXD Exposure to other specified factors, subsequent encounter

== ENCOUNTER 2018-06-08 13:13 | Inpatient (IN) | payer OTHER ==
[~2018-06-08] VITALS: Ht 163 cm; Wt 55.0 kg
--- NOTE | ~2018-06-08 | PR ---
[place], [place] PROGRESS NOTE [id number] UNIT #: [id number] ROOM: 421 DOCTOR: FRANCESCA SIN,FLORIDALMA Ellis BIRTHDATE: [birth year] DOS: 06/09/2018 SUBJECTIVE: The patient is feeling about the same. OBJECTIVE: VITAL SIGNS: Blood pressure 107/89, heart rate of 77 beats per minute, breathing 16 times per minute, temperature 99.8 degrees Fahrenheit. IMPRESSION: 1. The patient with Staphylococcus hominis positive blood cultures, running low grade fevers going up to 100.6 degrees Fahrenheit, being evaluated by Infectious Disease specialist, Dr. Cheryl Sheriff, who will decide about further workup and evaluation and treatment. 2. Late onset Alzheimer's type dementia, treated with rivastigmine. 3. Behavioral issues, treated and controlled with mirtazapine. 4. Generalized anxiety disorder, treated with hydroxyzine as needed. 5. Gastroesophageal reflux disease and esophagitis, treated with omeprazole. FLORIDALMA MA MD CM:PNTRANS [id number] FLORIDALMA MA MD 06/09/18 8577 interface
--- NOTE | ~2018-06-08 | CON ---
[place], [place] REPORT OF CONSULTATION NAME: CHICO SERRATO UNIT #: [id number] ROOM: 421 DOCTOR: CHERYL SHERIFF MD BIRTHDATE: [birth year] DOS: 06/09/2018 REASON FOR CONSULTATION: Staph hominis bacteremia. CHIEF COMPLAINT: None. HISTORY OF PRESENTING ILLNESS: This is an 87-year-old female who was presenting from alf facility because of abnormal blood cultures. I tried to ask multiple doctors as well as the staffing analyst, it is unclear why the patient's blood cultures were drawn at the alf; however, the patient herself is alert, awake, and denies having any fever or chills. No nausea, vomiting, diarrhea. No chest pain or shortness of breath. She denies having any diarrhea. Her blood cultures from 06/05/2018 only one bottle out of four bottles was positive for Staph hominis. No leukocytosis. Yesterday, she had a WBC count of 16.7, which was result without any antibiotics. On her vitals, she had one time temperature of 100.4. No subjective fever or chills. Her UA shows numerous bacteria. Urine culture shows heavy Gram-negative bacteria. The patient was recently admitted and discharged on 05/21/2018 when she was treated for ESBL E. coli and was getting imipenem, which she was supposed to get for 10 days, but her PICC line is still in place. Infectious Disease was not consulted at that time. PAST MEDICAL HISTORY: Significant for recurrent UTIs, hypertension, Alzheimer's, gastroparesis. MEDICATIONS: Reviewed. SOCIAL HISTORY: Nonsmoker, nonalcoholic. Resident of [facility]. PHYSICAL EXAMINATION: VITAL SIGNS: Mentioned in HPI, stable. GENERAL: The patient is alert and awake, not completely oriented. HEENT: Atraumatic, normocephalic. PERRLA, EOMI. RESPIRATORY: Air entry bilaterally equal. No wheeze or crackles. CARDIOVASCULAR: S1, S2 normal. ABDOMEN: Soft, nontender, nondistended. Bowel sounds present. EXTREMITIES: No pedal edema. NEUROLOGIC: Grossly intact. PICC line in place. LABORATORY DATA AND IMAGING: Reviewed, mentioned in HPI. ASSESSMENT: 1. Staphylococcus hominis bacteria, 1/4 bottles positive from 06/05/2018, likely contamination. 2. Recent urinary tract infection with extended-spectrum beta-lactamase Escherichia coli, completed 10 days course of antibiotics with imipenem. 3. Failure to thrive. 4. Gastroparesis. [place], [place] REPORT OF CONSULTATION NAME: CHICO SERRATO UNIT #: [id number] ROOM: [facility] DOCTOR: CHERYL SHERIFF MD BIRTHDATE: [birth year] PLAN: 1. At this time, no need for treatment of the Staph hominis bacteremia is likely a contamination. At this time, there is no need for PICC line. I would advise to discontinue the PICC line. 2. The patient has recently been treated for her UTI. Would not treat her again unless she is symptomatic and get a clean catch urine sample before sending for urine cultures. Thank you for your consult. Please call for any questions. Cheryl Sheriff MD CM:CONSTR:REPORT OF CONSULTATION 1826 07/03/18 1644 interface
--- NOTE | ~2018-06-08 | EKG ---
[place], [place] ELECTROCARDIOGRAM REPORT NAME: CHICO SERRATO UNIT #: [id number] ROOM: 421 DOCTOR: EPIPHANY DRAFT REPORT BIRTHDATE: [birth year] [facility] Test Date: 2018-06-08 Test Time: 13:34:12 Pat Name: CHICO SERRATO Department: Room: 421 Gender: F Stripe Matcher: : 1930 Requested By: AUGUSTIN MADSEN Order Number: [id number] Reading MD: Lambert Newberry MD Measurements Intervals [place] Rate: 76 P: 69 OK: 145 QRS: 56 QRSD: 82 T: 55 QT: 372 QTc: 419 Interpretive Statements Sinus rhythm Abnormal R-wave progression, early transition Compared to ECG 01/23/2018 17:40:53 No significant changes Electronically Signed On 06-10-2018 4:52:50 PST by Lambert Newberry MD CM:EKGRPT:ELECTROCARDIOGRAM REPORT [id number] AUGUSTIN MADSEN EPIPHANY DRAFT REPORT AUGUSTIN MADSEN
--- NOTE | ~2018-06-08 | WRIGHTHP ---
[place], [place] PATIENT HISTORY AND PHYSICAL EXAM NAME: CHICO SERRATO [facility] #: [id number] UNIT #: [id number] ROOM: 421 DOCTOR: FLORIDALMA MA MD BIRTHDATE: [birth year] DOS: 06/08/2018 HISTORY OF PRESENT ILLNESS: The patient is an 87-year-old female with a past medical history of: 1. Staph hominis positive blood cultures recently. 2. Late onset Alzheimer's type dementia. 3. Benign essential hypertension. 4. Advanced adult failure to thrive. 5. History of gastroparesis. The patient was at the senior living when she was reported by the lab to have blood cultures positive for Staphylococcus hominis and she was sent over to the Emergency Department and we contacted Infectious Disease specialist, Dr. Sheriff for opinion and the patient was recommended for admission and further evaluation before treatment. After admission, the patient is pleasantly confused. No chest pain. No shortness of breath. No GI or urinary symptoms. REVIEW OF SYSTEMS: LUNGS: No increasing shortness of breath. GASTROINTESTINAL: No nausea, vomiting, diarrhea, constipation. CARDIOVASCULAR: No chest pains or palpitations. FAMILY HISTORY: Noncontributory. HOME MEDICATIONS: The patient takes rivastigmine, omeprazole, Colace, mirtazapine, hydroxyzine, metoclopramide, cyproheptadine. ALLERGIES: SULFA mainly PHYSICAL EXAMINATION: GENERAL: The patient is pleasantly confused, generalized weakness. HEENT AND NECK: Extraocular movements are intact. Sclerae are anicteric. Oral mucosa is moist and clean. No obvious facial weakness. Neck is supple without any lymphadenopathy. No thyromegaly. No JVD. No carotid arterial bruits. LUNGS: Clear to auscultation. No wheezing. No rhonchi. CARDIOVASCULAR SYSTEM: Heart rate is regular in rate and rhythm. S1 and S2 normally audible. No significant murmur or any other abnormal cardiac sounds. ABDOMEN: Soft, nontender. No obvious organomegaly. Bowel sounds are present. No obvious herniation. EXTREMITIES: Without significant cyanosis or edema. Warm to touch. CENTRAL NERVOUS SYSTEM: Alert and oriented x 3. Cranial nerves II-XII are intact. Speech is normal. The patient is able to move all extremities. Normal muscle strength. Deep tendon reflexes are equal on both sides. Plantars were downgoing. IMPRESSION AND PLAN: 1. The patient with Staphylococcus hominis positive blood culture, to be evaluated by Infectious Disease specialist, then recommended treatment. 2. Late onset Alzheimer's type dementia. The patient is continued on rivastigmine and we will take bedsore and fall precautions, use air mattress and [place], [place] PATIENT HISTORY AND PHYSICAL EXAM NAME: CHICO SERRATO UNIT #: [id number] ROOM: [facility] DOCTOR: FRANCESCA SIN,FLORIDALMA Ellis BIRTHDATE: [birth year] every 2 hour turning. 3. Gastroesophageal reflux disease and esophagitis, treated with omeprazole, asymptomatic. 4. Late onset Alzheimer's type dementia with behavioral issues, treated with mirtazapine. 5. The patient to work with Physical Therapy for advanced directives. FLORIDALMA MA MD CM:HISPHYS:PATIENT HISTORY AND PHYSICAL EXAMINATION 170 24 FLORIDALMA MA MD 06/08/181925 interface
--- NOTE | ~2018-06-08 | DS ---
[place], [place] DISCHARGE SUMMARY NAME: CHICO SERRATO UNIT #: [id number] ROOM: 421 DOCTOR: FLORIDALMA MA MD BIRTHDATE: [birth year] DOS: 06/10/2018 DISCHARGE DIAGNOSES: 1. Staphylococcus hominis hominis positive blood cultures 1/4 bottles, considered contaminant by Infectious Disease specialist. 2. Urinary tract infection with Proteus mirabilis. 3. Late onset Alzheimer's type dementia. 4. Gastroesophageal reflux disease and esophagitis. 5. Adult failure to thrive. 6. Benign essential hypertension. 7. Gastroparesis history. HOSPITAL COURSE: The patient with advanced adult failure to thrive was sent over for positive blood cultures for Staphylococcus hominis hominis. The patient was admitted, recultured and there were no other signs of infection, so this was considered a contaminant by Infectious Disease specialist, Dr. Sheriff, and patient to be discharged back to residential. Urinary tract infection with Proteus mirabilis, recently treated. Mild leukocytosis, improved. Benign essential hypertension with controlled blood pressures. Advance adult failure to thrive. We took bedsore precautions, fall precautions and the patient worked with physical therapy. Late onset Alzheimer's type dementia remains stable. DISCHARGE MANAGEMENT: Rivastigmine 13.3 mg daily, Colace 100 mg daily, omeprazole 20 mg a day, metoclopramide 5 mg b.i.d., mirtazapine 15 mg at bedtime, hydroxyzine 50 mg at bedtime, cyproheptadine 4 mg b.i.d. for a month. [place], [place] DISCHARGE SUMMARY NAME: CHICO SERRATO UNIT #: [id number] ROOM: 421 DOCTOR: FLORIDALMA MA MD BIRTHDATE: [birth year] FLORIDALMA MA MD CM:DISCHARG 1703 [id number] FLORIDALMA MA MD 06/11/18 0013 interface
[2018-06-08 13:15] VITALS: BP 124/53
[2018-06-08 13:41] LABS: BILIRUBIN NEGATIVE (NEGATIVE); BLOOD TRACE-INTACT (NEGATIVE); CLARITY CLOUDY (CLEAR); COLOR YELLOW (YELLOW); GLUCOSE NEGATIVE (NEGATIVE); KETONE NEGATIVE (NEGATIVE); LEUKO ESTERASE 3+ (NEGATIVE); NITRITE NEGATIVE (NEGATIVE); UROBILINOGEN 0.2 E.U./dl (0.2-1.0)
[2018-06-08 13:53] LABS: BACTERIA 4+; WBC TNTC wbc/hpf (0-5)
--- NOTE | 2018-06-08 14:16 | NUR ---
Notifed my lab, pt has lactic acid of 2.4, Hal GEIGER and Elissa APPIAH notifed.
--- NOTE | 2018-06-08 14:18 | NUR ---
PER Tova CHANDLER AFTER SPEAKING WITH ID "NO ANTIBIOTICS ARE TO BE GIVEN TO PT BEFORE ID SEE HER".
[2018-06-08 14:22] LABS: BASO # 0.2 10*3/uL (0.0-0.1); EOS # 0.1 10*3/uL (0.0-0.4); EOS % 0.7 % (1.0-4.0); LYMPH # 3.7 10*3/uL (1.3-4.4); LYMPH % 22.7 % (27.0-41.0); MEAN CELL VOLUME 91.1 fl (81.0-99.0); MEAN CORPUSCULAR HGB 28.9 pg (27.0-31.0); MEAN CORPUSCULAR HGB CONC 31.7 g/dl (33.0-37.0); MEAN PLATELET VOLUME 9.5 fl (9.6-12.3); MONO # 1.3 10*3/uL (0.1-1.0); MONO % 7.8 % (3.0-9.0); NEUT # 10.9 10*3/uL (2.3-7.9); NEUT % 66.3 % (47.0-73.0); PLATELET COUNT AUTOMATED 506 10*3/uL (130-400); RED BLOOD COUNT 4.26 10*6/uL (4.10-5.10); RED CELL DISTRI WIDTH 16.1 % (0-14.5); WHITE BLOOD COUNT 16.5 10*3/uL (4.8-10.8)
[2018-06-08 14:23] LABS: ACT PARTIAL THROMBO TIME 22.2 SECONDS (20.8-31.5)
[2018-06-08 14:24] LABS: HEMATOCRIT 38.8 % (37.0-47.0); HEMOGLOBIN 12.3 g/dl (12.0-16.0)
[2018-06-08 14:36] LABS: ALBUMIN 3.7 gm/dl (3.1-4.5); ALKALINE PHOSPHATASE 82 U/L (45-117); BUN 44 mg/dl (7-24); CHLORIDE 111 mmol/L (98-107); CREATININE 1.03 mg/dL (0.55-1.02); POTASSIUM 5.3 mmol/L (3.5-5.1); SGOT/AST 16 IU/L (3-35); SGPT/ALT 19 U/L (12-78); SODIUM 140 mmol/L (136-145); TOTAL PROTEIN 7.8 gm/dL (6.4-8.2)
[2018-06-08 14:38] VITALS: BP 129/60
[2018-06-08 14:45] VITALS: BP 122/51
--- NOTE | 2018-06-08 15:00 | NUR ---
A 87, admitted to 4E, under the services of Dr. FRANCESCA SIN,FLORIDALMA Ellis with a diagnosis of POSATIVE BLOOD CULTURE. Chief complaint is NONE. Patient arrived via stretcher from ER. Monitor applied. Initial assessment completed. Vital signs taken and recorded. DR. FRANCESCA SIN,FLORIDALMA Ellis notified of admission to the unit. Orders received. See assessment for past medical history, medications and allergies. Patient and/or family oriented to unit. [facility] visitation policy reviewed. Clothing/patient valuable form completed. TYE JOHNSON
[2018-06-08 16:00] VITALS: BP 122/52
[2018-06-08 20:00] VITALS: BP 102/49
[2018-06-09] VITALS: BP 115/49
[2018-06-09 07:21] LABS: BASO # 0.1 10*3/uL (0.0-0.1); BASO % 0.9 % (0.0-1.0); EOS # 0.1 10*3/uL (0.0-0.4); EOS % 0.8 % (1.0-4.0); HEMOGLOBIN 10.6 g/dl (12.0-16.0); LYMPH # 3.1 10*3/uL (1.3-4.4); LYMPH % 30.6 % (27.0-41.0); MEAN CELL VOLUME 88.6 fl (81.0-99.0); MEAN CORPUSCULAR HGB 29.4 pg (27.0-31.0); MEAN CORPUSCULAR HGB CONC 33.2 g/dl (33.0-37.0); MEAN PLATELET VOLUME 9.7 fl (9.6-12.3); MONO # 0.8 10*3/uL (0.1-1.0); MONO % 7.9 % (3.0-9.0); NEUT % 58.6 % (47.0-73.0); PLATELET COUNT AUTOMATED 435 10*3/uL (130-400); RED CELL DISTRI WIDTH 16.1 % (0-14.5); WHITE BLOOD COUNT 10.2 10*3/uL (4.8-10.8)
[2018-06-09 07:23] LABS: HEMATOCRIT 31.9 % (37.0-47.0)
[2018-06-09 08:00] VITALS: BP 107/89
[2018-06-09 12:00] VITALS: BP 122/66
--- NOTE | 2018-06-09 14:45 | NUR ---
PHYSICAL THERAPY PT EVAL COMPLETED ON LEVEL 4 TODAY : FULL EVALUATION TO FOLLOW. RECOMMEND SKILLED PT WHILE HERE TO ADDRESS DECREASED STRENTH, BALANCE AND FUNCTIONAL MOBILITY. PT EVAL IS MODERATE COMPLEXITY BASED ON CHART REVIEW, TEST RESULTS AND EVALUATION: 00274. D/C RECOMMENDATIONS ARE TO RETURN TO [facility] WHEN MEDICALLY STABLE AND RECIEVE PT TO REGAIN PLOF. THANK YOU FOR REFERRAL JAVAD HEALY PT
[2018-06-09 16:00] VITALS: BP 121/78
[2018-06-09 20:00] VITALS: BP 97/45
--- NOTE | 2018-06-09 20:15 | NUR ---
1944 PT RESTING INB ED ON RIGHT SIDE. HOB ELEVATED. SIDE RAILS UP X'S 2. CALL LIGHT IN REACH. PICC LINE ARMANDO REMOVED PER REQUEST. DRESSING APPLIED. NO DISTRESS NOTED. NO C/O'S VOICED. NON-VERBAL AT PRESENT. WILL CONT TO MONITOR. PULSE OX 97% ON RA.
--- NOTE | 2018-06-09 21:18 | NUR ---
PT TOOK HS MEDS WITHOUT DIFFICULTY. PT IS NOT NON-VERBAL, JUST VERY [place].
--- NOTE | 2018-06-09 22:09 | NUR ---
RESTING IN BED WITH EYES CLOSED. APPEARS TO BE SLEEPING. NO DISTRESS NOTED. CONDITION GUARDED.
--- NOTE | 2018-06-09 23:00 | NUR ---
ASSUMED CARE FOR PATIENT AT THIS TIME. PATIENT SLEEPING AND EASY RESPERS. BED LOCKED IN LOWEST POSITION. CALL NAVARRO WITHIN REACH. WILL MONITOR.
[2018-06-10] VITALS: BP 117/56
--- NOTE | 2018-06-10 00:52 | NUR ---
24 HR chart check completed.
[2018-06-10 05:45] LABS: BASO # 0.1 10*3/uL (0.0-0.1); BASO % 0.8 % (0.0-1.0); EOS # 0.1 10*3/uL (0.0-0.4); EOS % 1.1 % (1.0-4.0); HEMATOCRIT 31.1 % (37.0-47.0); LYMPH % 31.7 % (27.0-41.0); MEAN CELL VOLUME 89.1 fl (81.0-99.0); MEAN CORPUSCULAR HGB 28.7 pg (27.0-31.0); MEAN CORPUSCULAR HGB CONC 32.2 g/dl (33.0-37.0); MEAN PLATELET VOLUME 9.4 fl (9.6-12.3); MONO # 0.8 10*3/uL (0.1-1.0); MONO % 8.9 % (3.0-9.0); NEUT # 5.4 10*3/uL (2.3-7.9); NEUT % 56.7 % (47.0-73.0); PLATELET COUNT AUTOMATED 405 10*3/uL (130-400); RED BLOOD COUNT 3.49 10*6/uL (4.10-5.10); RED CELL DISTRI WIDTH 16.2 % (0-14.5); WHITE BLOOD COUNT 9.5 10*3/uL (4.8-10.8)
--- NOTE | 2018-06-10 09:00 | NUR ---
Real Estate Marketing Coordinator in to see patient. She resides at [facility] where she is a LTC resident and plan to return there upon discharge. environmental restoration planner following.
--- NOTE | 2018-06-10 09:29 | NUR ---
PHYSICAL THERAPY Patient presented to therapy in supine with no concerns or complaints. Patient is supine in bed with head of bed elevated. Patient agrees to therapy session. Patient was identified by name and . Patient performed supine to sitting at EOB with MOD A X 1. Patient performed STS transfer with MIN A X 1 with verbal cues for pushing off armrests with hands. Patient transferred to bedside chair with MIN A X 1. Patient was left sitting in bedside chair with tray table in front with breakfast, call light within reach, and chair alarm attached to patient. Patient was 1:1 with this SAP SD ANALYST for 10 minutes total. Patient recommended for SNF upon discharge. GEOFFREY BAEZ SAP SD ANALYST
[2018-06-10 12:00] VITALS: BP 105/71; BP 114/74
--- NOTE | 2018-06-10 13:28 | NUR ---
PHYSICAL THERAPY Patient presented to therapy in sitting position in bedside chair with family member visiting in room. Patient had chair alarm attached. Patient agrees to therapy session. Patient was identified by name and . Patient performed seated bilateral LE ther ex in all planes of movement x 10 reps each for strengthening the LEs in order to improve patient's functional mobility. Patient performed x 1 STS and standing tolerance with M0D A X 1 TO STAND AND patient only being able to stand for 10 seconds before needing to sit. Patient was left in sitting position in bedside chair with call light within reach, chair alarm attached to patient, and patient's visitor in the room. Patient was 1:1 with this RUG LAYER for 12 minutes total. Patient is recommended for SNF upon discharge. GEOFFREY BAEZ RUG LAYER
[2018-06-10 16:00] VITALS: BP 114/43
[2018-06-10] MEDS ORDERED: AUGMENTIN 875-875 MG PO (16:53)
--- NOTE | 2018-06-10 18:22 | NUR ---
Discharge instructions reviewed with patient/family. Patient receptive and verbalizes understanding. Follow-up care arranged. Written instructions given to patient/family. PATIENT PICKED UP BY [facility] AND TAKEN TO [facility]. REPORT GIVEN TO RECEIVING NURSE. HEPLOCK DISCONTINUED, MONITOR DISCONTINUED. MAYA BRITTON
--- NOTE | 2018-06-11 08:55 | NUR ---
PHYSICAL THERAPY CO-SIGN I approve of the Phyical Therapy notes written above. ALETHEA CHAPA PT
== END 2018-06-10 18:25 | DRG 872 ==
LOC: ED 13:13 → EDHOLD 14:12 → 4E 14:38
PROVIDERS: Nurse Practitioner Family; ADMIT Internal Medicine
DX: R78.81 Bacteremia (principal); N39.0 Urinary tract infection, site not specified; K21.0 Gastro-esophageal reflux disease with esophagitis; I10 Essential (primary) hypertension; E86.0 Dehydration; Z96.643 Presence of artificial hip joint, bilateral; G30.1 Alzheimer's disease with late onset; F41.1 Generalized anxiety disorder; F02.80 Dementia in other diseases classified elsewhere, unspecified severity, without behavioral disturbance, psychotic disturbance, mood disturbance, and anxiety; Z66 Do not resuscitate; B96.4 Proteus (mirabilis) (morganii) as the cause of diseases classified elsewhere; Z51.5 Encounter for palliative care; R62.7 Adult failure to thrive; D72.829 Elevated white blood cell count, unspecified; B95.7 Other staphylococcus as the cause of diseases classified elsewhere; Z91.81 History of falling; Z88.2 Allergy status to sulfonamides; Z87.440 Personal history of urinary (tract) infections; Z98.42 Cataract extraction status, left eye; Z90.49 Acquired absence of other specified parts of digestive tract; Z90.710 Acquired absence of both cervix and uterus; Z80.9 Family history of malignant neoplasm, unspecified

== ENCOUNTER 2018-07-03 12:01 | Emergency (ER) | payer OTHER ==
[~2018-07-03] VITALS: Ht 170.1 cm; Wt 63.5 kg
--- NOTE | ~2018-07-03 | EKG ---
[place], [place] ELECTROCARDIOGRAM REPORT NAME: CHICO SERRATO UNIT #: [id number] ROOM: DOCTOR: PRASANNA DRAFT REPORT BIRTHDATE: [birth year] [facility] Test Date: 2018-07-03 Test Time: 12:30:01 Pat Name: CHICO SERRATO Department: Room: Gender: F Yam Curer: : 1930 Requested By: JAYLA GOMEZ DNP Order Number: [id number] Reading MD: Measurements Intervals [place] Rate: 91 P: 62 UT: 143 QRS: 46 QRSD: 78 T: 43 QT: 354 QTc: 436 Interpretive Statements Sinus rhythm Consider right atrial enlargement Baseline wander in lead(s) V3 Compared to ECG 06/08/2018 13:34:12 No significant changes CM:EKGRPT:ELECTROCARDIOGRAM REPORT 1230 0932 JAYLA MIMS DRAFT REPORT JAYLA GOMEZ DNP
[~2018-07-03 12:01] MED LIST changes: +AUGMENTIN 875-875 MG PO
[2018-07-03 12:45] LABS: BASO # 0.1 10*3/uL (0.0-0.1); BASO % 0.5 % (0.0-1.0); EOS # 0.1 10*3/uL (0.0-0.4); EOS % 0.8 % (1.0-4.0); HEMATOCRIT 37.4 % (37.0-47.0); HEMOGLOBIN 12.1 g/dl (12.0-16.0); LYMPH # 2.1 10*3/uL (1.3-4.4); LYMPH % 17.4 % (27.0-41.0); MEAN CELL VOLUME 92.8 fl (81.0-99.0); MEAN CORPUSCULAR HGB CONC 32.4 g/dl (33.0-37.0); MEAN PLATELET VOLUME 9.5 fl (9.6-12.3); MONO # 0.8 10*3/uL (0.1-1.0); MONO % 6.9 % (3.0-9.0); NEUT # 8.7 10*3/uL (2.3-7.9); NEUT % 72.8 % (47.0-73.0); PLATELET COUNT AUTOMATED 431 10*3/uL (130-400); RED BLOOD COUNT 4.03 10*6/uL (4.10-5.10); RED CELL DISTRI WIDTH 18.4 % (0-14.5)
[2018-07-03 12:55] LABS: ACT PARTIAL THROMBO TIME 22.1 SECONDS (20.8-31.5); INTERNATIONAL NORM RATIO 0.9 (2.0-3.5)
[2018-07-03 13:01] LABS: ALBUMIN 3.4 gm/dl (3.1-4.5); ALKALINE PHOSPHATASE 67 U/L (45-117); BUN 55 mg/dl (7-24); CHLORIDE 114 mmol/L (98-107); CREATININE 1.07 mg/dL (0.55-1.02); POTASSIUM 4.6 mmol/L (3.5-5.1); SGOT/AST 9 IU/L (3-35); SGPT/ALT 19 U/L (12-78); SODIUM 143 mmol/L (136-145); TOTAL PROTEIN 7.3 gm/dL (6.4-8.2)
[2018-07-03 13:04] LABS: TROPONIN I < 0.015 ng/ml (<0.045)
[2018-07-03 13:29] LABS: BILIRUBIN NEGATIVE (NEGATIVE); BLOOD NEGATIVE (NEGATIVE); CLARITY SL CLOUDY (CLEAR); COLOR YELLOW (YELLOW); GLUCOSE NEGATIVE (NEGATIVE); KETONE NEGATIVE (NEGATIVE); LEUKO ESTERASE TRACE (NEGATIVE); NITRITE NEGATIVE (NEGATIVE); PH 5.5 (5.0-9.0); SPECIFIC GRAVITY 1.025 (1.005-1.030); UROBILINOGEN 0.2 E.U./dl (0.2-1.0)
[2018-07-03 13:59] LABS: BACTERIA 3+
[2018-07-03] MEDS ORDERED: NYSTATIN CREAM15 GM T (15:27)
== END 2018-07-03 15:35 | disposition home or self-care (01) ==
LOC: ED 12:01
PROVIDERS: Nurse Practitioner Family
DX: M25.551 Pain in right hip (principal); M25.552 Pain in left hip; L24.9 Irritant contact dermatitis, unspecified cause; R41.0 Disorientation, unspecified; F03.90 Unspecified dementia, unspecified severity, without behavioral disturbance, psychotic disturbance, mood disturbance, and anxiety; I10 Essential (primary) hypertension; R79.1 Abnormal coagulation profile; Z88.2 Allergy status to sulfonamides; Z79.899 Other long term (current) drug therapy; W18.39XA Other fall on same level, initial encounter; Y93.89 Activity, other specified; Y92.122 Bedroom in nursing home as the place of occurrence of the external cause; Y99.8 Other external cause status